=== PATIENT | male | born 1980 | race Caucasian/White ===

== ENCOUNTER 2020-10-26 10:23 | Outpatient (REF) | payer OTHER, SELFPAY ==
[2020-10-26 10:27] LABS: MANUAL DIFF FLAG NO
[2020-10-26 10:55] LABS: Basophils Absolute Auto 0.1 X10*3/uL (0.0-0.2); Basophils Percent Auto 1.6 % (0-2); Eosinophils Absolute Auto 0.7 X10*3/uL (0.0-0.4); Eosinophils Percent Auto 13.1 % (0-4); Hematocrit 46.2 % (42-52); Hemoglobin 14.9 g/dl (14.0-18.0); Imm Gran Abs Auto 0.02 X10*3/uL (0.00-0.03); Imm Gran Pct Auto 0.4 % (0.0-0.4); Lymphocytes Absolute Auto 1.5 X10*3/uL (1.2-4.9); Lymphocytes Percent Auto 29.6 % (20-40); Mean Corpuscular HGB Conc 32.3 g/dl (31.0-36.0); Mean Corpuscular Hemoglobin 29.2 pg (27.0-33.0); Mean Corpuscular Volume 90.6 fL (80-98); Mean Platelet Volume 10.2 fL (9.4-12.4); Monocytes Absolute Auto 0.4 X10*3/uL (0.1-1.2); Monocytes Percent Auto 6.9 % (2-11); Neutrophils Absolute Auto 2.5 X10*3/uL (2.0-8.3); Neutrophils Percent Auto 48.4 % (45-73); Platelet Count 259 X10*3/uL (160-400); Red Cell Distribution Width 12.2 % (11.0-16.0); White Blood Count 5.1 X10*3/uL (4.8-10.8)
[2020-10-26 11:01] LABS: Glucose Urine UA NEG (NEG); Leukocyte Esterase Urine NEG (NEG); Nitrite Urine NEG (NEG); Specific Gravity - Urine <= 1.005 (1.005-1.025); Urine Blood NEG (NEG); Urine Ketones NEG (NEG); Urine Protein NEG (NEG-TRACE)
[2020-10-26 11:03] LABS: Appearance Urine CLEAR; Color Urine YELLOW
[2020-10-26 11:21] LABS: Alanine Aminotransferase 52 U/L (0-40); Albumin Level 4.7 g/dL (3.5-5.0); Alkaline Phosphatase 53 U/L (39-117); Anion Gap 16 (12-20); Aspartate Amino Transferase 24 U/L (5-37); Bilirubin Total 1.5 mg/dL (0.0-1.0); Blood Urea Nitrogen 17 mg/dL (9-16); Calcium 9.2 mg/dL (8.4-10.2); Carbon Dioxide 28 mmol/L (22-29); Chloride 100 mmol/L (96-108); Cholesterol 241 mg/dL; Estimated Glomerular Filt Rate > 60; Glucose Fasting 99 mg/dL (60-99); HDL Cholesterol 45 mg/dL; LDL Cholesterol Calculated 170 mg/dl; Sodium 140 mmol/L (135-145); Total Protein 7.5 g/dL (6.5-8.0); Triglycerides 132 mg/dL
== END 2020-10-26 10:24 | disposition home or self-care (01) ==
LOC: HO.LNP 10:23
PROVIDERS: Visit Provider Internal Medicine
DX: Z00.00 Encounter for general adult medical examination without abnormal findings (principal); D72.820 Lymphocytosis (symptomatic); E78.00 Pure hypercholesterolemia, unspecified; R03.0 Elevated blood-pressure reading, without diagnosis of hypertension
CPT/HCPCS: 80053; 80061; 81003; 85025

== ENCOUNTER → 2020-11-17 14:48 | Outpatient (BNVA) | payer OTHER, SELFPAY | PROVIDERS: PCP Internal Medicine; Visit Provider Surgery ==

== ENCOUNTER 2020-12-03 15:32 | Outpatient (REF) | payer OTHER, SELFPAY ==
--- NOTE | ~2020-12-03 | US_ITS ---
EXAMINATION: ULTRASOUND EXTREMITY NONVASCULAR CLINICAL INFORMATION: Soft tissue mass left lateral thigh COMPARISON: None TECHNIQUE: Grayscale and color imaging of the left lateral proximal thigh using a linear transducer FINDINGS: Palpable abnormality corresponds to a 0.8 x 0.5 x 1.6 cm hypoechoic solid mass. This is 0.5 cm deep from the skin surface. This has a significant acoustic shadowing and may have some peripheral calcification. This appears avascular. Ultrasound appearance is nonspecific. US/US extremity nonvascular IMPRESSION: Palpable abnormality corresponds to a 0.8 x 0.5 x 1.6 cm solid hypoechoic shadowing mass. Ultrasound appearance is nonspecific. This would be amenable to ultrasound-guided core biopsy if clinically indicated.
== END 2020-12-03 15:33 | disposition home or self-care (01) ==
LOC: HO.US 15:32
PROVIDERS: Visit Provider Surgery
DX: R22.42 Localized swelling, mass and lump, left lower limb (principal)
CPT/HCPCS: 76882

== ENCOUNTER → 2021-01-19 10:36 | Day surgery (SDC) | payer OTHER, SELFPAY ==
--- NOTE | ~2021-01-19 | US_ITS ---
PROCEDURE: ULTRASOUND-GUIDED FINE AND CORE NEEDLE BIOPSY LEFT THIGH. CLINICAL INFORMATION: There is a calcified mass left lateral upper thigh. COMPARISON: None TECHNIQUE: Following explaining ultrasound-guided fine-needle and core biopsy procedure, benefits and risk involving left upper thigh, a written consent was obtained. Patient was placed in right decubitus view and preliminary imaging was obtained through the left upper lateral thigh. An optimal site was selected and marked on the skin. The marked site was then cleaned and draped in the usual sterile manner. 1% lidocaine was injected at puncture site. Through a small skin incision a guide needle was advanced from the marked position into the specimen and a 4-pass fine-needle aspiration biopsy was performed. Subsequently a 20-gauge biopsy gun was advanced and 2-pass core biopsy performed. Postprocedure complete hemostasis achieved at puncture site. Sterile bandage applied postprocedure. Patient tolerated procedure extremely well. FINDINGS: On preliminary ultrasound imaging there is a calcified mass in the left upper thigh. Approximately 4-pass fine-needle biopsy aspiration performed. 2-pass core biopsy of left upper thigh mass was performed. US/US guided fine needle asp IMPRESSION: Successful ultrasound-guided left upper thigh calcified mass fine-needle and core biopsy was performed without immediate complications. Pathology results are pending.
== END ==
PROVIDERS: PCP Internal Medicine; Visit Provider Surgery
DX: R22.42 Localized swelling, mass and lump, left lower limb (principal); M61.461 Other calcification of muscle, right lower leg
CPT/HCPCS: 10005; 20206; 88172; 88173; 88177; 88304; 88305

== ENCOUNTER → 2021-04-08 15:25 | Outpatient (BNVA) | payer OTHER, SELFPAY | PROVIDERS: PCP Internal Medicine; Referring Provider Internal Medicine; Visit Provider Surgery ==

== ENCOUNTER 2021-11-08 10:53 | Outpatient (REF) | payer OTHER, SELFPAY ==
[2021-11-08 10:57] LABS: MANUAL DIFF FLAG NO
[2021-11-08 11:49] LABS: Appearance Urine CLEAR; Color Urine YELLOW; Glucose Urine UA NEG (NEG); Leukocyte Esterase Urine NEG (NEG); Nitrite Urine NEG (NEG); Specific Gravity - Urine 1.025 (1.005-1.025); Urine Blood NEG (NEG); Urine Ketones NEG (NEG); Urine Protein NEG (NEG-TRACE)
[2021-11-08 11:57] LABS: Basophils Absolute Auto 0.1 X10*3/uL (0.0-0.2); Basophils Percent Auto 1.6 % (0-2); Eosinophils Absolute Auto 0.6 X10*3/uL (0.0-0.4); Eosinophils Percent Auto 11.8 % (0-4); Hematocrit 43.6 % (42.0-52.0); Hemoglobin 14.3 g/dl (14.0-18.0); Imm Gran Abs Auto 0.02 X10*3/uL (0.00-0.03); Imm Gran Pct Auto 0.4 % (0.0-0.4); Lymphocytes Absolute Auto 2.2 X10*3/uL (1.2-4.9); Lymphocytes Percent Auto 42.9 % (20-40); Mean Corpuscular HGB Conc 32.8 g/dl (31.0-36.0); Mean Corpuscular Hemoglobin 29.7 pg (27.0-33.0); Mean Corpuscular Volume 90.5 fL (80.0-98.0); Mean Platelet Volume 10.4 fL (9.4-12.4); Monocytes Absolute Auto 0.4 X10*3/uL (0.1-1.2); Monocytes Percent Auto 7.6 % (2-11); Neutrophils Absolute Auto 1.8 x10*3/uL (2.0-8.3); Neutrophils Percent Auto 35.7 % (45-73); Platelet Count 223 X10*3/uL (160-400); Red Blood Count 4.82 X10*6/uL (4.60-5.80); White Blood Count 5.1 X10*3/uL (4.8-10.8)
[2021-11-08 12:24] LABS: PSA,Total (Free>4and<10) 0.98 ng/mL (0.00-4.00)
[2021-11-08 12:36] LABS: Alanine Aminotransferase 28 U/L (0-40); Albumin Level 4.1 g/dL (3.5-5.0); Alkaline Phosphatase 51 U/L (39-117); Anion Gap 11 (12-20); Aspartate Amino Transferase 17 U/L (5-37); Bilirubin Total 1.4 mg/dL (0.0-1.0); Blood Urea Nitrogen 17 mg/dL (9-16); Calcium 9.5 mg/dL (8.4-10.2); Carbon Dioxide 28 mmol/L (22-29); Chloride 103 mmol/L (96-108); Cholesterol 178 mg/dL; Estimated Glomerular Filt Rate > 60; Glucose Fasting 97 mg/dL (60-99); HDL Cholesterol 41 mg/dL; LDL Cholesterol Calculated 106 mg/dl; Potassium 3.9 mmol/L (3.3-5.1); Sodium 138 mmol/L (135-145); Total Protein 6.7 g/dL (6.5-8.0); Triglycerides 156 mg/dL
== END 2021-11-08 10:54 | disposition home or self-care (01) ==
LOC: HO.LNP 10:53
PROVIDERS: PCP Internal Medicine; Visit Provider Internal Medicine
DX: Z00.00 Encounter for general adult medical examination without abnormal findings (principal); E78.6 Lipoprotein deficiency; D72.820 Lymphocytosis (symptomatic); Z12.5 Encounter for screening for malignant neoplasm of prostate
CPT/HCPCS: 80053; 80061; 81003; 84153; 85025

== ENCOUNTER → 2022-12-29 10:25 | Outpatient (BNVA) | payer OTHER, SELFPAY | PROVIDERS: PCP Internal Medicine; Referring Provider Internal Medicine; Visit Provider Surgery ==

== ENCOUNTER 2023-06-26 06:59 | Day surgery (SDC) | payer OTHER, SELFPAY ==
[2023-06-21 19:08] VITALS: BMI 25.5
--- NOTE | 2023-06-23 10:35 | HO.ANESPROP2 ---
Documented by User: Ashlyn Disla NP 06/23/23 10:36 HPI - Anesthesia Eval Consult details Narrative: 43yo M for Right Hernia Repair Inguinal with mesh PMFSH Active Problems Active Problems: All Active Problems (Updated 06/22/23 @ 07:46 by Leigh Lomeli RN) Mass of left thigh (Acute) Right inguinal hernia (Acute) Past Medical History Medical History Lymphocytosis Marijuana user Family History Family History Paternal Grandfather Cancer with unknown primary site Maternal Grandfather Mouth cancer Surgical History Surgical History History of mandibular surgery H/O foot surgery Social History Social History Alcohol intake: never Patient Tobacco Use Status: Never used Tobacco Use of substances other than those prescribed or required for medical reasons: Yes Substance Use Type: Marijuana Substance Use Frequency: Daily Are you DNR?: No Advance Directives: No Advance Directives Information Provided: Yes Advance Directives on File: No Recently lost weight without trying: No Nutrition Risks: No Nutritional Risk Meds Allergies Allergy/AdvReac Type Severity Reaction Status Date / Time amoxicillin [From Augmentin] AdvReac Mild Diarrhea Verified 12/29/22 10:42 Home Medications Medication Instructions Recorded Confirmed Last Taken Type No Known Home Meds 11/17/20 06/21/23 Unknown History Exam Exam Date and Time: June 23, 2023 1035 Height,Weight and Vital Signs: Height 6 ft 1 in Weight 87.543 kg Assessment and Plan Assessment Anesthesia Assessment: Chart Reviewed Documented by User: Jasmin Barth MD 06/26/23 08:04 PMFSH Past Medical History Medical History Lymphocytosis Marijuana user Family History Family History Paternal Grandfather Cancer with unknown primary site Maternal Grandfather Mouth cancer Family history of problems with anesthesia: No Surgical History Surgical History History of mandibular surgery H/O foot surgery History of Problems with Anesthesia: No Social History Social History Alcohol intake: never Patient Tobacco Use Status: Never used Tobacco Use of substances other than those prescribed or required for medical reasons: Yes Substance Use Type: Marijuana Substance Use Frequency: Daily Are you DNR?: No Advance Directives: No Advance Directives Information Provided: Yes Advance Directives on File: No Recently lost weight without trying: No Nutrition Risks: No Nutritional Risk Meds Allergies Allergy/AdvReac Type Severity Reaction Status Date / Time amoxicillin [From Augmentin] AdvReac Mild Diarrhea Verified 12/29/22 10:42 Home Medications Medication Instructions Recorded Confirmed Last Taken Type No Known Home Meds 11/17/20 06/21/23 Unknown History Exam Airway Mallampati Class: II TM Dist: >3cm Neck ROM: Full Heart: rrr Lungs: cta Assessment and Plan Assessment Anesthesia Assessment: Anesthesia Plan Discussed and Smoking Cess. Discussed Final Anesthetic Review Family History of Problems with Anesthesia: No History of Problems with Anesthesia: No NPO: Yes ASA Class: II (daily marihuana user ) Final Preanesthetic Review: No Changes in Pt Med Stat, Meds/Allgs Chart Reviewed, Consent Obtained/Reviewed and Anes Risks/Benef Reviewed Patient Risk: Intermediate Procedure Risk: Low Anesthetic Plan Anesthetic Plan: GA Disposition: Standard PACU
[2023-06-26] VITALS (8 sets, daily range): BP systolic 118–131; BP diastolic 67–85; PULSE 70–80; RESP 14–18; TEMP 36.3–36.6; O2SAT 98–100
--- NOTE | 2023-06-26 08:36 | MHC.SHP ---
Pre-Procedural Eval Section A Date of Service: 06/26/23 The patient is an INPATIENT: No Changes since office visit: Yes Patient answered all questions; No Cold of Flu in the past 2 weeks, No New Medical Problems and No Changes in Medication The History & Physical has been completed within 30 days and I have reviewed it.: No Section B Chief Complaint: Unilateral inguinal hernia, without obstruction Details of Present Illness: Continued left inguinal hernia pain, improved with truss. No new symptoms reported Relevant Family History (Specify if Yes): No Relevant Social History: None Present Medications: see Short Stay Collaborative assessment Medical History: No relevant PMH History of Previous Operations: No relevant previous surgery Allergies: Allergies Allergy/AdvReac Type Severity Reaction Status Date / Time amoxicillin [From Augmentin] AdvReac Mild Diarrhea Verified 12/29/22 10:42 Review of Systems Sugical H&P ROS: Negative: Constitution, Cardiovascular, Respiratory, Neurological, Psychiatric, Hem-Onc, Allergic/Immunologic, Gastrointestinal, Genitourinary, Musculoskeletal, Integumentary, Endocrine and Eyes/Ears/Nose/Throat Exam Surgical H&P Exam: Normal: HEENT, Normal: Heart, Normal: Lungs, Normal: Extremities, Normal: Skin and Normal: Neurological and Significant Findings: Abdomen (Reducible right inguinal hernia) Plan Diagnosis/Plan: Unchanged I have reviewed the history and physical and performed a pertinent physical examination on my patient. No changes have occurred unless specified. Time Spent With Patient Time: Total time managing care of this patient today ____ minutes.
[2023-06-26] MEDS: Lactated Ringers 1,000 ML 100 ML IVCONT (08:39)
--- NOTE | 2023-06-26 09:45 | P.OP_ITS ---
Operative Note Operative Note Date of Service: 06/26/23 Narrative: Preoperative diagnosis: Right inguinal hernia, reducible Postoperative diagnosis: Right inguinal hernia, reducible Procedure: Repair of right inguinal hernia with mesh Surgeon: Andrei Pérez MD Digital Recruiter: Katherine Harvey PA-C Anesthesia: General LMA Indications for procedure: 43-year-old male patient presenting with a palpable lump in the right groin which increases in size with lifting and straining and reduces with light pressure. Operative findings: Indirect right inguinal hernia repaired with a large PHS mesh Specimen: Lipoma of the cord right side Estimated blood loss: Less than 2 mL Complications: None Procedure details: Patient was brought to the OR placed in a supine position. After administering general anesthesia the patient's abdomen was prepped with ChloraPrep and draped in a sterile fashion. A surgical time-out was called the consent confirmed. Patient received preoperative antibiotics and Venodyne boots were in place. Local anesthesia was then infiltrated over the inguinal ligament. Incision was then made with a scalpel carried out through subcutaneous tissue, past Linda's fashion up to the external oblique aponeurosis. Additional local was infiltrated below the aponeurosis. This was then incised with the scalpel wide with the Metzenbaum scissors. The spermatic cord was then dissected free from the inguinal canal and retracted using a [place] drain. The floor of the inguinal canal was found to be intact. Fibers of the cremaster muscle were then and a large lipoma of the cord identified. This was dissected free down to the internal ring. The lipoma was ligated with a 0 Polysorb suture and excised. This was sent to pathology for further examination. No hernia sac could be identified. Attention was then to the floor of the in guinal canal. The fibers of the internal oblique aponeurosis and transversalis aponeurosis were then divided and the preperitoneal space entered. This was then widened with an open Ray-Td sponge. A large PHS mesh was then obtained. The circular underlay was then deployed in the preperitoneal space and the overlie secured to the pubic tubercle, conjoined tendon, and shelving edge of the inguinal ligament using a 0 Polysorb suture. A slit was made in the mesh in the mesh wrapped around the spermatic cord at the internal ring. This was then secured to the shelving edge using the 0 Polysorb suture. The internal ring was loose enough to allow passage of the tip of the index finger pass. Wounds were then irrigated with saline solution and suctioned dry. External oblique aponeurosis was then closed using a running 2-0 Polysorb suture. 6 mL of sent relief was then infiltrated below the aponeurosis. Linda's fascia and dermis were then reapproximated using interrupted 3-0 Polysorb sutures. Skin was closed using a running subcuticular 4-0 Polysorb suture. Steri-Strips, 2 x 2 gauze and Tegaderm were then applied. The patient tolerated the procedure well. Sponge, instrument, and needle counts reported as correct. The patient was transferred to PACU in stable condition.
== END 2023-06-26 12:37 | disposition home or self-care (01) ==
PROVIDERS: PCP Internal Medicine; Visit Provider Surgery
PROC: (CPT 49505; principal; 2023-06-26 08:40)
DX: K40.90 Unilateral inguinal hernia, without obstruction or gangrene, not specified as recurrent (principal); D17.6 Benign lipomatous neoplasm of spermatic cord; D72.820 Lymphocytosis (symptomatic); Z88.1 Allergy status to other antibiotic agents; F12.90 Cannabis use, unspecified, uncomplicated; Z86.16 Personal history of COVID-19
CPT/HCPCS: 49505; 88304; C1781; C9088; J0665; J0690; J1100; J1885; J2405; J3010

== ENCOUNTER → 2023-06-26 06:59 | Outpatient (BNV) | payer OTHER, SELFPAY | PROVIDERS: PCP Internal Medicine; Visit Provider Surgery | DX: K40.90 Unilateral inguinal hernia, without obstruction or gangrene, not specified as recurrent (principal) | CPT/HCPCS: 49505 ==

== ENCOUNTER 2023-06-30 14:57 | Outpatient (AMB) | payer OTHER, SELFPAY ==
--- NOTE | 2023-06-30 15:06 | A.OFFVIS_ITS ---
Intake Vital Signs 06/30/23 15:20 Height 6 ft 1 in Weight 191 lb 12.835 oz BMI 25.3 BP 147/93 H Blood Pressure Location Rt brachial Position Sitting Pulse 87 Pulse Source Pulse Oximeter Temp 97.6 F Temp Source Tympanic Pulse Oximetry (%) 100 Oxygen Delivery Method Room Air Intake Visit Reasons: post-op nausea, hernia repair *JJM Pt* Intake Note: Pt c/o: dizziness, bloating with anything to eat, nausea and sleeping all day today. He states he stopped pain medication x 1 day Refresh Technician Required: No Business Reporting Developer: Business Reporting Developer offered & declined Allergies amoxicillin [From Augmentin] Adverse Reaction (Mild, Verified 06/30/23 15:22) Diarrhea Medication List - Last Reconciled 06/30/23 by Jhon Rodriguez MD, ORI, SHAKIRS acetaminophen (Tylenol) 325 mg PO QID PRN ondansetron HCl 4 mg PO Q6-8H PRN ondansetron HCl 4 mg PO Q6H PRN sennosides (Natural Senna Laxative) 8.6 mg PO DAILY HPI HPI Comments History of Present Illness Details The patient is a 43-year-old gentleman who underwent an uneventful open right inguinal hernia repair with mesh by Dr. Pérez on 06/26/2023. The patient contacted the office noting dizziness, lightheadedness, that was worsening after removing his anti nausea patch. The patient is been having significant constipation and also notes that he is a heavy marijuana user and he has not been using marijuana since surgery. He had been taking the oxycodone that was prescribed fairly regularly and due to constipation and taken multiple laxatives. Given the degree of symptoms described, I asked him to come to the office for an evaluation. He is accompanied by his and notes that he is a little better after having a bowel movement here, but is still having issues regarding dizziness. He denies chest pain, difficulty breathing, shortness of breath. He does noted tendency towards motion sickness. He is describing also back pain and right flank pain. [facility] Medical History (Updated 06/30/23 @ 15:19 by Jhon Rodriguez MD, FACS, SHAKIRS) Lymphocytosis Marijuana user Surgical History (Updated 06/30/23 @ 15:23 by Praveena Daley CMA) Hx of inguinal hernia repair History of mandibular surgery H/O foot surgery Family History Paternal Grandfather Cancer with unknown primary site Maternal Grandfather Mouth cancer Social History Alcohol intake: never Patient Tobacco Use Status: Never used Tobacco Substance Use Type: Marijuana Review of Systems Const All systems reviewed & are unremarkable except as noted in HPI and below Physical Exam Vital Signs: Last Vital Signs Temp 97.6 F 06/30/23 15:20 Pulse 87 06/30/23 15:20 BP 147/93 H 06/30/23 15:20 Pulse Ox 100 06/30/23 15:20 Oxygen Delivery Method Room Air 06/30/23 15:20 BMI result Body Mass Index 25.3 On exam he is nontoxic He is anicteric He is having no respiratory difficulty Patient is examined standing in his abdomen is soft with no tenderness, a resolving ecchymosis around his incision is noted but there is no erythema, significant tenderness, significant hematoma, or unexpected finding on physical exam. Results Reviewed Results Reviewed: I ordered a stat CBC which showed normal hemoglobin and white blood cell count Chemistries essentially normal, minor anomalies are present but the patient is not dehydrated having a normal BUN and creatinine. Assessment & Plan Assessment & Plan (1) Right inguinal hernia: Code(s): K40.90 - Unilateral inguinal hernia, without obstruction or gangrene, not specified as recurrent Plan I will contact the patient by phone assuming that his chemistries are fine and he is not dehydrated. Script for Zofran was sent to his pharmacy as requested. I suspect the patient is dealing with constipation that is causing nausea and the patient was reassured that this should pass. Patient also notes heavy daily marijuana use and, anecdotally, symptoms of nausea from not using marijuana sometimes occur in patients postoperatively or during illness. Patient will follow-up with Dr. Pérez next and will contact me by phone on the weekend if he is clinically worsening or has questions. I called the patient on his cell phone at [phone], but there was no answer. Message was left reassuring him that there were no significant anomalies or problems was left and a reminder that he can reach me through the answering service if he has questions. Orders: Orders Complete Blood Count Auto Diff Today K40.90 - Unilateral inguinal hernia, without obstruction or gangrene, not specified as recurrent, R11.0 - Nausea Comprehensive Met. Panel Today K40.90 - Unilateral inguinal hernia, without obstruction or gangrene, not specified as recurrent, R11.0 - Nausea Medications: New ondansetron HCl 4 mg PO Q6-8H PRN 20 tabs 0RF nausea and vomiting ondansetron HCl 4 mg PO Q6H PRN 20 tabs 0RF nausea and vomiting Coding Level of Care Code Global (28593) Diagnoses Right inguinal hernia K40.90
[2023-06-30 15:20] VITALS: BP 147/93; PULSE 87; TEMP 36.4; O2SAT 100; BMI 25.3
== END 2023-06-30 16:47 | disposition home or self-care (01) ==
PROVIDERS: PCP Internal Medicine; Visit Provider Surgery
DX: K40.90 Unilateral inguinal hernia, without obstruction or gangrene, not specified as recurrent (principal)
CPT/HCPCS: 99024

== ENCOUNTER 2023-06-30 14:57 | Outpatient (REF) | payer OTHER, SELFPAY ==
[2023-06-30 15:54] LABS: MANUAL DIFF FLAG NO
[2023-06-30 16:19] LABS: Basophils Absolute Auto 0.1 X10*3/uL (0.0-0.2); Basophils Percent Auto 0.9 % (0-2); Eosinophils Absolute Auto 0.5 X10*3/uL (0.0-0.4); Eosinophils Percent Auto 8.8 % (0-4); Hematocrit 47.2 % (42.0-52.0); Hemoglobin 15.9 g/dl (14.0-18.0); Imm Gran Abs Auto 0.02 X10*3/uL (0.00-0.03); Imm Gran Pct Auto 0.4 % (0.0-0.4); Lymphocytes Absolute Auto 1.4 X10*3/uL (1.2-4.9); Lymphocytes Percent Auto 26.1 % (20-40); Mean Corpuscular HGB Conc 33.7 g/dl (31.0-36.0); Mean Corpuscular Hemoglobin 29.6 pg (27.0-33.0); Mean Corpuscular Volume 87.7 fL (80.0-98.0); Mean Platelet Volume 10.1 fL (9.4-12.4); Monocytes Absolute Auto 0.3 X10*3/uL (0.1-1.2); Monocytes Percent Auto 6.2 % (2-11); Neutrophils Absolute Auto 3.2 x10*3/uL (2.0-8.3); Neutrophils Percent Auto 57.6 % (45-73); Platelet Count 262 X10*3/uL (160-400); Red Blood Count 5.38 X10*6/uL (4.60-5.80); White Blood Count 5.5 X10*3/uL (4.8-10.8)
[2023-06-30 16:42] LABS: Alanine Aminotransferase 21 U/L (0-40); Albumin Level 4.5 g/dL (3.5-5.0); Alkaline Phosphatase 62 U/L (39-117); Anion Gap 12 (12-20); Aspartate Amino Transferase 19 U/L (5-37); Bilirubin Total 1.5 mg/dL (0.0-1.0); Blood Urea Nitrogen 9 mg/dL (9-16); Calcium 10.3 mg/dL (8.4-10.2); Carbon Dioxide 29 mmol/L (22-29); Chloride 104 mmol/L (96-108); Estimated Glomerular Filt Rate > 60; Glucose Random 94 mg/dL (60-115); Potassium 4.5 mmol/L (3.3-5.1); Sodium 140 mmol/L (135-145); Total Protein 8.2 g/dL (6.5-8.0)
== END 2023-06-30 14:58 | disposition home or self-care (01) ==
LOC: HO.LAB 14:57
PROVIDERS: PCP Internal Medicine; Visit Provider Surgery
DX: K40.90 Unilateral inguinal hernia, without obstruction or gangrene, not specified as recurrent (principal); R11.0 Nausea
CPT/HCPCS: 36415; 80053; 85025

== ENCOUNTER 2023-07-06 09:27 | Outpatient (AMB) | payer OTHER, SELFPAY ==
--- NOTE | 2023-07-06 09:37 | A.OFFVIS_ITS ---
Intake Vital Signs 07/06/23 09:48 Height 6 ft 1 in Weight 196 lb BMI 25.9 BP 141/86 H Blood Pressure Location Rt brachial Position Sitting Pulse 79 Intake Visit Reasons: S/P RIH repair w/mesh Intake Note: Patient is seen in office for post op assessment post right inguinal hernia repair. Reports incision healing well. No longer taking rx pain meds. Taking tylenol/ ibuprofen as needed. surgery: 06/26/23 Assistant Associate Full Professor Required: No Accompanied by: Self / Same As Patient Allergies amoxicillin [From Augmentin] Adverse Reaction (Mild, Verified 07/06/23 09:47) Diarrhea Medication List - Last Reconciled 07/06/23 by Andrei Pérez MD acetaminophen (Tylenol) 325 mg PO QID PRN ondansetron HCl 4 mg PO Q6H PRN sennosides (Natural Senna Laxative) 8.6 mg PO DAILY HPI HPI Comments History of Present Illness Details 43-year-old male returning 1 week follow ing repair of a right inguinal hernia. He reports soreness in the incision but is improving day by day. He denies nausea, vomiting, fevers chills. PFSH Medical History Lymphocytosis Marijuana user Surgical History Hx of inguinal hernia repair History of mandibular surgery H/O foot surgery Family History Paternal Grandfather Cancer with unknown primary site Maternal Grandfather Mouth cancer Social History Alcohol intake: never Patient Tobacco Use Status: Never used Tobacco Substance Use Type: Marijuana Physical Exam Vital Signs: Last Vital Signs Pulse 79 07/06/23 09:48 BP 141/86 H 07/06/23 09:48 BMI result Body Mass Index 25.9 Const General: comfortable Nutritional Appearance: well nourished Orientation/consciousness: patient oriented x3 Limitations: no limitations Resp Effort & Inspection: normal respiratory effort, no audible wheezes, no cough and no respiratory distress GI Other: Incision in the right groin is clean, dry, and intact without redness or discharge. No hernia noted with Valsalva maneuvers. Skin Other: Warm, dry, no rash Neuro General: patient oriented x3 Extrem Other: No edema Assessment & Plan Assessment & Plan (1) Right inguinal hernia: Code(s): K40.90 - Unilateral inguinal hernia, without obstruction or gangrene, not specified as recurrent Plan 43-year-old male status post repair of a right inguinal hernia with mesh. He tolerated the procedure well the wounds are healing nicely. He should continue to avoid lifting greater than 10 lb and follow-up in approximately 1 month for wound examination. Coding Level of Care Code Global (88130) Diagnoses Right inguinal hernia K40.90
[2023-07-06 09:48] VITALS: BP 141/86; PULSE 79; BMI 25.9
== END 2023-07-06 09:58 | disposition home or self-care (01) ==
PROVIDERS: PCP Internal Medicine; Visit Provider Surgery
DX: K40.90 Unilateral inguinal hernia, without obstruction or gangrene, not specified as recurrent (principal)
CPT/HCPCS: 99024

== ENCOUNTER → 2023-07-06 09:27 | Outpatient (BNVA) | payer OTHER, SELFPAY | PROVIDERS: PCP Internal Medicine; Visit Provider Surgery ==

== ENCOUNTER 2023-07-27 10:41 | Outpatient (AMB) | payer OTHER, SELFPAY ==
--- NOTE | 2023-07-27 10:45 | MHC.OFFVIS ---
Intake Vital Signs 07/27/23 10:53 Height 6 ft 1 in Weight 202 lb BMI 26.6 BP 142/76 H Blood Pressure Location Lt brachial Position Sitting Pulse 63 Intake Visit Reasons: S/P RIH repair w/mesh Intake Note: Patient is seen in office for one month follow up visit, post right inguinal hernia repair. Pt c/o: at times sore, healing as expected Application Consultant Required: No Accompanied by: Self / Same As Patient Allergies amoxicillin [From Augmentin] Adverse Reaction (Mild, Verified 07/27/23 10:54) Diarrhea HPI HPI Comments History of Present Illness Details Patient returns 1 month following repair of a right inguinal hernia. He still has some soreness in the incision and is concerned about returning to full duty work. He denies any nausea, vomiting, fever or chills. [facility] Medical History Lymphocytosis Marijuana user Surgical History Hx of inguinal hernia repair History of mandibular surgery H/O foot surgery Family History Paternal Grandfather Cancer with unknown primary site Maternal Grandfather Mouth cancer Social History Alcohol intake: never Comment: counts correct Patient Tobacco Use Status: Never used Tobacco Substance Use Type: Marijuana Physical Exam Vital Signs: Last Vital Signs Pulse 63 07/27/23 10:53 BP 142/76 H 07/27/23 10:53 BMI result Body Mass Index 26.6 Const General: comfortable Nutritional Appearance: well nourished Orientation/consciousness: patient oriented x3 Limitations: no limitations Resp Effort & Inspection: normal respiratory effort, no audible wheezes, no cough and no respiratory distress GI Other: Incision in the right groin is clean, dry, and intact without redness or discharge. No hernia noted with Valsalva maneuvers. minimal tenderness to palpation. Skin Other: Warm, dry, no rash Neuro General: patient oriented x3 Extrem Other: No edema Assessment & Plan Assessment & Plan (1) Right inguinal hernia: Code(s): K40.90 - Unilateral inguinal hernia, without obstruction or gangrene, not specified as recurrent Plan Patient tolerated the procedure well and his wounds are healing nicely. 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 I recommended he stay out of work for another 4 weeks before returning to full duty. He should return as needed. Coding Level of Care Code Global (90896) Diagnoses Right inguinal hernia K40.90
[2023-07-27 10:53] VITALS: BP 142/76; PULSE 63; BMI 26.6
== END 2023-07-27 11:01 | disposition home or self-care (01) ==
PROVIDERS: PCP Internal Medicine; Visit Provider Surgery
DX: K40.90 Unilateral inguinal hernia, without obstruction or gangrene, not specified as recurrent (principal)
CPT/HCPCS: 99024

== ENCOUNTER → 2023-07-27 10:41 | Outpatient (BNVA) | payer OTHER, SELFPAY | PROVIDERS: PCP Internal Medicine; Visit Provider Surgery ==

== ENCOUNTER 2023-07-28 13:30 | Outpatient (REF) | payer OTHER, SELFPAY ==
--- NOTE | ~2023-07-28 | US_ITS ---
EXAMINATION: US SCROTUM CLINICAL INFORMATION: Lump on scrotum. COMPARISON: None available. TECHNIQUE: A sonogram of the scrotum was performed assessing flynn-scale appearance and color Doppler flow. Spectral Doppler analysis of the arterial and venous flow were performed in the testes bilaterally. Radiologist was not in attendance. Images were later provided for interpretation. FINDINGS: RIGHT: Right testicle measures 5.0 x 2.5 x 3.2 cm, volume 20.9 mL. No focal testicular parenchymal lesions are visualized. Spectral Doppler analysis of the arterial and venous flow is normal in the right testis. 1.2 x 1.2 x 1.2 cm cyst in the region of the right epididymal head. No right varicocele is seen. Small right hydrocele. Right epididymal Doppler flow is normal. LEFT: Left testicle measures 4.8 x 2.4 x 3.1 cm, volume 18.7 mL. No focal testicular parenchymal lesions are visualized. Spectral Doppler analysis of the arterial and venous flow is normal in the left testis. A 1.4 x 0.6 x 1.8 cm complex cyst with multiple septations is located on the lower aspect of the left scrotum, possibly within the left epididymal tail, but difficult to confirm location. No left varicocele is seen. Small left hydrocele. Left epididymal Doppler flow is normal. US/US scrotum IMPRESSION: 1. A 1.4 cm complex multiseptated cyst along the lower aspect of the left scrotum, possibly within the left epididymal tail, but difficult to confirm location. 2. A 1.2 cm cyst in the region of the right epididymal head. 3. Small bilateral hydroceles. Urology consultation recommended to determine further management.
== END 2023-07-28 13:31 | disposition home or self-care (01) ==
LOC: HO.HMGCX 13:30
PROVIDERS: PCP Internal Medicine; Visit Provider Internal Medicine
DX: N50.89 Other specified disorders of the male genital organs (principal)
CPT/HCPCS: 76870

== ENCOUNTER 2023-09-15 11:21 | Outpatient (REF) | payer OTHER, SELFPAY ==
[2023-09-15 11:26] LABS: MANUAL DIFF FLAG NO
[2023-09-15 11:46] LABS: Appearance Urine Clear; Color Urine Yellow; Glucose Urine UA Negative (Negative); Leukocyte Esterase Urine Negative (Negative); Nitrite Urine Negative (Negative); Specific Gravity - Urine >= 1.030 (1.005-1.025); Urine Blood Negative (Negative); Urine Ketones Negative (Negative); Urine Protein Negative (Neg-Trace)
[2023-09-15 11:47] LABS: Basophils Absolute Auto 0.1 X10*3/uL (0.0-0.2); Basophils Percent Auto 2.1 % (0-2); Eosinophils Absolute Auto 0.8 X10*3/uL (0.0-0.4); Hematocrit 43.6 % (42.0-52.0); Hemoglobin 14.4 g/dl (14.0-18.0); Imm Gran Abs Auto 0.03 X10*3/uL (0.00-0.03); Imm Gran Pct Auto 0.6 % (0.0-0.4); Lymphocytes Absolute Auto 1.5 X10*3/uL (1.2-4.9); Lymphocytes Percent Auto 31.6 % (20-40); Mean Corpuscular Hemoglobin 30.3 pg (27.0-33.0); Mean Corpuscular Volume 91.6 fL (80.0-98.0); Mean Platelet Volume 10.9 fL (9.4-12.4); Monocytes Absolute Auto 0.4 X10*3/uL (0.1-1.2); Monocytes Percent Auto 7.7 % (2-11); Platelet Count 248 X10*3/uL (160-400); Red Blood Count 4.76 X10*6/uL (4.60-5.80); Red Cell Distribution Width 12.4 % (11.0-16.0); White Blood Count 4.7 X10*3/uL (4.8-10.8)
[2023-09-15 11:52] LABS: Bacteria Urine None Seen (None Seen); Hyaline Casts Urine 0-2 /LPF (0-2); RBC Urine 0-2 /HPF (0-2); Squamous Epithelial Cell Urine 0-2 /HPF (0-2); WBC Urine 0-5 /HPF (0-5)
[2023-09-15 11:53] LABS: Alanine Aminotransferase 30 U/L (0-40); Albumin Level 4.3 g/dL (3.5-5.0); Alkaline Phosphatase 46 U/L (39-117); Anion Gap 17 (12-20); Aspartate Amino Transferase 23 U/L (5-37); Bilirubin Total 1.2 mg/dL (0.0-1.0); Blood Urea Nitrogen 20 mg/dL (9-16); Calcium 9.5 mg/dL (8.4-10.2); Carbon Dioxide 25 mmol/L (22-29); Chloride 104 mmol/L (96-108); Cholesterol 180 mg/dL (<200); Estimated Glomerular Filt Rate > 60; Glucose Fasting 90 mg/dL (60-99); HDL Cholesterol 46 mg/dL (>40); LDL Cholesterol Calculated 116 mg/dL (<100); Potassium 4.1 mmol/L (3.3-5.1); Sodium 142 mmol/L (135-145); Total Protein 7.2 g/dL (6.5-8.0); Triglycerides 91 mg/dL (<150)
[2023-09-15 12:13] LABS: PSA,Total (Free>4and<10) 0.99 ng/mL (0.00-4.00)
== END 2023-09-15 11:22 | disposition home or self-care (01) ==
LOC: HO.LNP 11:21
PROVIDERS: Visit Provider Internal Medicine
DX: Z00.00 Encounter for general adult medical examination without abnormal findings (principal); Z12.5 Encounter for screening for malignant neoplasm of prostate; E78.00 Pure hypercholesterolemia, unspecified; D72.820 Lymphocytosis (symptomatic)
CPT/HCPCS: 80053; 80061; 81001; 84153; 85025

== ENCOUNTER 2023-09-20 12:45 | Outpatient (AMB) | payer OTHER, SELFPAY ==
--- NOTE | 2023-09-20 13:19 | MHC.OFFVIS ---
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 The patient had a scrotal ultrasound in July I have reviewed the results. The patient denies pain currently. 07/28/23-- 1.4 cm complex multiseptated cyst along the lower aspect of the left scrotum, possibly within the left epididymal tail, but difficult to confirm location. A 1.2 cm cyst in the region of the right epididymal head. Small bilateral hydroceles. Examination: No significant scrotal swelling. No testicular tenderness. Plan repeat ultrasound in 3 months [facility] Medical History Lymphocytosis Marijuana user Surgical History Hx of inguinal hernia repair History of mandibular surgery H/O foot surgery Family History Paternal Grandfather Cancer with unknown primary site Maternal Grandfather Mouth cancer Social History Alcohol intake: never Comment: counts correct Patient Tobacco Use Status: Never used Tobacco Substance Use Type: Marijuana Review of Systems Const All systems reviewed & are unremarkable except as noted in HPI and below Reports no additional complaints Eyes Reports no additional complaints ENT Reports no additional complaints Card Denies dyspnea Resp Denies cough and Denies dyspnea GI Reports no additional complaints Musc Reports no additional complaints Skin/Breast Denies rash and Denies unusual bruising Neuro Reports no additional complaints Psych Reports no additional complaints Endo Reports no additional complaints Ted/Lymph Reports no additional complaints Aller/Immun Reports no additional complaints Physical Exam Const General: healthy appearing, no acute distress and well developed Orientation/consciousness: patient oriented x3 HEENT Head: Yes normocephalic and Yes atraumatic Eyes Conjunctivae: conjunctivae normal Neck Neck: Yes normal visual inspection Chest Chest palpation & inspection: normal inspection of the chest Resp Effort & Inspection: normal respiratory effort Cardio Rate: regular rate GI Inspection: Yes normal to inspection Palpation (GI): Soft to palpation Other: Testicles nontender, scrotum no erythema noted Penis: normal penis Skin General skin exam: no rashes or lesions noted Neuro General: patient oriented x3 Extrem General: No pedal edema Psych Appearance: grossly normal Affect: normal affect Results AMB Urinalysis, Automated UA Leukoctes 0 Jose Armando/uL Last Edit by Cassie Carpio [facility] on 09/20/23 13:27 UA Nitrite Negative Last Edit by Cassie Carpio [facility] on 09/20/23 13:27 UA Urobilinogen 0.2 mg/dL Last Edit by Cassie Carpio [facility] on 09/20/23 13:27 UA Protein 0 mg/dL Last Edit by Cassie Carpio [facility] on 09/20/23 13:27 UA pH 6.0 Last Edit by Cassie Carpio [facility] on 09/20/23 13:27 UA Blood 0 Thee/uL Last Edit by Cassie Carpio [facility] on 09/20/23 13:27 UA Specific [place] 1.030 Last Edit by Cassie Carpio [facility] on 09/20/23 13:27 UA Ketone Negative Last Edit by Cassie Carpio [facility] on 09/20/23 13:27 UA Bilirubin 0 mg/dL Last Edit by Cassie Carpio [facility] on 09/20/23 13:27 UA Glucose 0 mg/dL Last Edit by Cassie Carpioryan Carpio [facility] on 09/20/23 13:27 Results Reviewed Results Reviewed: Laboratory Last Values Urine pH (Auto) 6.0 09/20/23 13:24 Specific [place] (Auto) 1.030 09/20/23 13:24 Urine Protein (Auto) 0 mg/dL 09/20/23 13:24 Glucose (UA)(Auto) 0 mg/dL 09/20/23 13:24 Urine Ketones (Auto) Negative 09/20/23 13:24 Urine Blood (Auto) 0 Thee/uL 09/20/23 13:24 Urine Nitrite (Auto) Negative 09/20/23 13:24 Urine Bilirubin (Auto) 0 mg/dL 09/20/23 13:24 Urine Urobilinogen (Auto) 0.2 mg/dL 09/20/23 13:24 Leukocyte Esterase (Auto) 0 Jose Armando/uL 09/20/23 13:24 Date of Service: 07/28/23 EXAMINATION: US SCROTUM CLINICAL INFORMATION: Lump on scrotum. COMPARISON: None available. TECHNIQUE: A sonogram of the scrotum was performed assessing flynn-scale appearance and color Doppler flow. Spectral Doppler analysis of the arterial and venous flow were performed in the testes bilaterally. Radiologist was not in attendance. Images were later provided for interpretation. FINDINGS: RIGHT: Right testicle measures 5.0 x 2.5 x 3.2 cm, volume 20.9 mL. No focal testicular parenchymal lesions are visualized. Spectral Doppler analysis of the arterial and venous flow is normal in the right testis. 1.2 x 1.2 x 1.2 cm cyst in the region of the right epididymal head. No right varicocele is seen. Small right hydrocele. Right epididymal Doppler flow is normal. LEFT: Left testicle measures 4.8 x 2.4 x 3.1 cm, volume 18.7 mL. No focal testicular parenchymal lesions are visualized. Spectral Doppler analysis of the arterial and venous flow is normal in the left testis. A 1.4 x 0.6 x 1.8 cm complex cyst with multiple septations is located on the lower aspect of the left scrotum, possibly within the left epididymal tail, but difficult to confirm location. No left varicocele is seen. Small left hydrocele. Left epididymal Doppler flow is normal. IMPRESSION: 1. A 1.4 cm complex multiseptated cyst along the lower aspect of the left scrotum, possibly within the left epididymal tail, but difficult to confirm location. 2. A 1.2 cm cyst in the region of the right epididymal head. 3. Small bilateral hydroceles. Assessment & Plan Assessment & Plan (1) Scrotal cyst: Code(s): L72.9 - Follicular cyst of the skin and subcutaneous tissue, unspecified (2) Epididymal cyst: Code(s): N50.3 - Cyst of epididymis Plan Repeat scrotal ultrasound Orders: Orders AMB Urinalysis Automated 09/20/23 R33.9 - Retention of urine, unspecified Patient Instructions: The patient had an opportunity to ask questions regarding treatment plan. All questions were answered. Imaging, Laboratory studies and physical exam results were discussed and reviewed in detail. No major barriers to understanding were identified. The patient expressed understanding and agreement with the above treatment plan. The patient is aware they should contact our office by phone for worsening of their current condition or the appearance of new symptoms. Compliance is encouraged with any medications and followup testing that is ordered. It is a privilege to be allowed the opportunity to participate in the urologic care of your patient. If you have any questions or concerns regarding treatment for the above conditions please do not hesitate to contact me. The office telephone contact is [phone]. This note is constructed in part using voice recognition software. While every effort has been made to ensure accuracy acquisition advisor errors may have been included. Yours sincerely, Eloisa Mccall MD Coding Level of Care Code New Pt Level 3 (85826) Diagnoses Scrotal cyst L72.9 Epididymal cyst N50.3
== END 2023-09-20 13:43 | disposition home or self-care (01) ==
PROVIDERS: PCP Internal Medicine; Visit Provider Urology
DX: L72.9 Follicular cyst of the skin and subcutaneous tissue, unspecified (principal); N50.3 Cyst of epididymis
CPT/HCPCS: 99203

== ENCOUNTER → 2023-09-20 12:45 | Outpatient (BNVA) | payer OTHER, SELFPAY | PROVIDERS: PCP Internal Medicine; Visit Provider Urology | DX: L72.9 Follicular cyst of the skin and subcutaneous tissue, unspecified (principal); N50.3 Cyst of epididymis; N43.3 Hydrocele, unspecified | CPT/HCPCS: 81003 ==

== ENCOUNTER 2023-11-20 15:25 | Outpatient (REF) | payer OTHER, SELFPAY ==
--- NOTE | ~2023-11-20 | US_ITS ---
EXAMINATION: US SCROTUM CLINICAL INFORMATION: Cyst of epididymis. COMPARISON: Scrotal ultrasound 07/28/2023. TECHNIQUE: A sonogram of the scrotum was performed assessing flynn-scale appearance and color Doppler flow. Spectral Doppler analysis of the arterial and venous flow were performed in the testes bilaterally. Radiologist was not in attendance. Images were later provided for interpretation. FINDINGS: RIGHT: Right testicle measures 4.9 x 2.5 x 3.5 cm, volume 22.1 mL. No focal testicular parenchymal lesions are visualized. Spectral Doppler analysis of the arterial and venous flow is normal in the right testis. Right epididymal Doppler flow is normal. A 1.2 x 0.9 x 1.1 cm cyst in the region of the epididymal head redemonstrated. Right varicocele. Moderate right hydrocele appears complex with low-level internal echoes characteristic of debris. LEFT: Left testicle measures 4.7 x 2.4 x 3.2 cm, volume 18.4 mL. No focal testicular parenchymal lesions are visualized. Spectral Doppler analysis of the arterial and venous flow is normal in the left testis. Left epididymal Doppler flow is normal. Left varicocele. Redemonstration of a moderate left hydrocele with complex internal echoes. Along the inferior aspect of the left testicle there is redemonstration of a complex collection with multiple septations and complex internal echoes which may represent a component of the hydrocele or may correlate with the previously identified 1.4 x 0.6 x 1.8 cm complex cystic collection noted along the lower aspect of the left scrotum. The relationship of these collections are difficult to assess. US/US scrotum IMPRESSION: 1. Moderate bilateral complex hydroceles. Redemonstration of a complex collection with low level internal echoes and septations along the inferior aspect of the left scrotum which is previously felt to represent a complex cystic collection, but may in fact be related to the complex left hydrocele. Relationship of these collections is difficult to assess. 2. A 1.2 cm cyst in the region of the right epididymal head. 3. Bilateral varicoceles. Urology consultation recommended to determine further management.
== END 2023-11-20 15:26 | disposition home or self-care (01) ==
LOC: HO.HMGCX 15:25
PROVIDERS: PCP Internal Medicine; Visit Provider Urology
DX: N50.3 Cyst of epididymis (principal); L72.9 Follicular cyst of the skin and subcutaneous tissue, unspecified
CPT/HCPCS: 76870

== ENCOUNTER 2023-11-29 15:22 | Outpatient (AMB) | payer OTHER, SELFPAY ==
--- NOTE | 2023-11-29 15:34 | A.OFFVIS_ITS ---
Intake Visit Reasons: follow up/US Intake Note: Patient is Present for Follow Up Ultrasound Urology Medication: none Antibiotic Allergies: Amoxicillin Blood Thinners:none Allergies amoxicillin [From Augmentin] Adverse Reaction (Mild, Verified 09/20/23 13:23) Diarrhea HPI Comments Details: Cesilia is a 43-year-old male who is here for FU scrotal US-11/20/23. Findings are stable multiseptated cyst along scrotum. On exam - testes non tender, scrotum without swelling or tenderness. Review of chart: 07/28/23-- 1.4 cm complex multiseptated cyst along the lower aspect of the left scrotum, possibly within the left epididymal tail, but difficult to confirm location. A 1.2 cm cyst in the region of the right epididymal head. Small bilateral hydroceles. Plan FU prn PFSH Medical History Lymphocytosis Marijuana user Surgical History Hx of inguinal hernia repair History of mandibular surgery H/O foot surgery Family History Paternal Grandfather Cancer with unknown primary site Maternal Grandfather Mouth cancer Social History Alcohol intake: never Comment: counts correct Patient Tobacco Use Status: Never used Tobacco Substance Use Type: Marijuana Review of Systems Const All systems reviewed & are unremarkable except as noted in HPI and below Reports no additional complaints Eyes Reports no additional complaints ENT Reports no additional complaints Card Reports no additional complaints Resp Reports no additional complaints GI Reports no additional complaints Reports as per HPI Musc Reports no additional complaints Skin/Breast Reports system reviewed and no additional complaints, except as documented Neuro Reports no additional complaints Psych Reports no additional complaints Endo Reports no additional complaints Ted/Lymph Reports no additional complaints Aller/Immun Reports no additional complaints Physical Exam Const General: healthy appearing, no acute distress and well developed Orientation/consciousness: patient oriented x3 HEENT Head: Yes normocephalic and Yes atraumatic Eyes Conjunctivae: conjunctivae normal Neck Neck: Yes normal visual inspection Chest Chest palpation & inspection: normal inspection of the chest Resp Effort & Inspection: normal respiratory effort Other: On exam - testes non tender, scrotum without swelling or tenderness. Neuro General: patient oriented x3 Extrem General: No pedal edema Psych Appearance: grossly normal Affect: normal affect Results AMB Urinalysis, Automated UA Leukoctes 0 Jose Armando/uL Last Edit by Praveena Granado [facility] on 11/29/23 15:43 UA Nitrite Negative Last Edit by Praveena Granado [facility] on 11/29/23 15:43 UA Urobilinogen 0.2 mg/dL Last Edit by Praveena Granado [facility] on 11/29/23 15:4 3 UA Protein 0 mg/dL Last Edit by Praveena Granado A on 11/29/23 15:43 UA pH 7.5 Last Edit by Praveena Granado [facility] on 11/29/23 15:43 UA Blood 0 Thee/uL Last Edit by Praveena Granado [facility] on 11/29/23 15:43 UA Specific [place] 1.015 Last Edit by Praveena Granado [facility] on 11/29/23 15: 43 UA Ketone Negative Last Edit by Praveena Granado [facility] on 11/29/23 15:43 UA Bilirubin 0 mg/dL Last Edit by Praveena Granado [facility] on 11/29/23 15:43 UA Glucose 0 mg/dL Last Edit by Praveena Granado [facility] on 11/29/23 15:43 Results Reviewed Results Reviewed: Laboratory Last Values Urine pH (Auto) 7.5 11/29/23 15:42 Specific [place] (Auto) 1.015 11/29/23 15:42 Urine Protein (Auto) 0 mg/dL 11/29/23 15:42 Glucose (UA)(Auto) 0 mg/dL 11/29/23 15:42 Urine Ketones (Auto) Negative 11/29/23 15:42 Urine Blood (Auto) 0 Thee/uL 11/29/23 15:42 Urine Nitrite (Auto) Negative 11/29/23 15:42 Urine Bilirubin (Auto) 0 mg/dL 11/29/23 15:42 Urine Urobilinogen (Auto) 0.2 mg/dL 11/29/23 15:42 Leukocyte Esterase (Auto) 0 Jose Armando/uL 11/29/23 15:42 Date of Service: 11/20/23 EXAMINATION: US SCROTUM CLINICAL INFORMATION: Cyst of epididymis. COMPARISON: Scrotal ultrasound 07/28/2023. TECHNIQUE: A sonogram of the scrotum was performed assessing flynn-scale appearance and color Doppler flow. Spectral Doppler analysis of the arterial and venous flow were performed in the testes bilaterally. Radiologist was not in attendance. Images were later provided for interpretation. FINDINGS: RIGHT: Right testicle measures 4.9 x 2.5 x 3.5 cm, volume 22.1 mL. No focal testicular parenchymal lesions are visualized. Spectral Doppler analysis of the arterial and venous flow is normal in the right testis. Right epididymal Doppler flow is normal. A 1.2 x 0.9 x 1.1 cm cyst in the region of the epididymal head redemonstrated. Right varicocele. Moderate right hydrocele appears complex with low-level internal echoes characteristic of debris. LEFT: Left testicle measures 4.7 x 2.4 x 3.2 cm, volume 18.4 mL. No focal testicular parenchymal lesions are visualized. Spectral Doppler analysis of the arterial and venous flow is normal in the left testis. Left epididymal Doppler flow is normal. Left varicocele. Redemonstration of a moderate left hydrocele with complex internal echoes. Along the inferior aspect of the left testicle there is redemonstration of a complex collection with multiple septations and complex internal echoes which may represent a component of the hydrocele or may correlate with the previously identified 1.4 x 0.6 x 1.8 cm complex cystic collection noted along the lower aspect of the left scrotum. The relationship of these collections are difficult to assess. IMPRESSION: 1. Moderate bilateral complex hydroceles. Redemonstration of a complex collection with low level internal echoes and septations along the inferior aspect of the left scrotum which is previously felt to represent a complex cystic collection, but may in fact be related to the complex left hydrocele. Relationship of these collections is difficult to assess. 2. A 1.2 cm cyst in the region of the right epididymal head. 3. Bilateral varicoceles. Assessment & Plan Assessment & Plan (1) Scrotal cyst: Code(s): L72.9 - Follicular cyst of the skin and subcutaneous tissue, unspecified Category: Medical (2) Epididymal cyst: Code(s): N50.3 - Cyst of epididymis Category: Medical Plan FU prn Orders: Orders AMB Urinalysis Automated 11/29/23 Z13.9 - Encounter for screening, unspecified Patient Instructions: The patient had an opportunity to ask questions regarding treatment plan. The patient expressed understanding and agreement with the above treatment plan. The patient is aware they should contact our office by phone for worsening of their current condition or the appearance of new symptoms. Compliance is encouraged with any medications and followup testing that is ordered. It is a privilege to be allowed the opportunity to participate in the urologic care of your patient. If you have any questions or concerns regarding treatment for the above conditions please do not hesitate to contact me. The office telephone contact is [phone]. This note is constructed in part using voice recognition software. While every effort has been made to ensure accuracy rides attendant errors may have been included. Yours sincerely, Eloisa Mccall MD Coding Level of Care Code Est Pt Level 3 (32725) Diagnoses Scrotal cyst L72.9 Epididymal cyst N50.3
== END 2023-11-29 16:22 | disposition home or self-care (01) ==
PROVIDERS: PCP Internal Medicine; Visit Provider Urology
DX: L72.9 Follicular cyst of the skin and subcutaneous tissue, unspecified (principal); N50.3 Cyst of epididymis
CPT/HCPCS: 99213

== ENCOUNTER → 2023-11-29 15:22 | Outpatient (BNVA) | payer OTHER, SELFPAY | PROVIDERS: PCP Internal Medicine; Visit Provider Urology | DX: N50.3 Cyst of epididymis (principal); L72.9 Follicular cyst of the skin and subcutaneous tissue, unspecified | CPT/HCPCS: 81003 ==

== ENCOUNTER 2024-04-23 15:48 | Outpatient (REF) | payer OTHER, SELFPAY ==
[2024-04-23 15:58] LABS: Appearance Urine Clear; Color Urine Yellow; Glucose Urine UA Negative (Negative); Leukocyte Esterase Urine Negative (Negative); Nitrite Urine Negative (Negative); PH 6.5 (5.0-9.0); Specific Gravity - Urine <= 1.005 (1.005-1.025); Urine Blood Negative (Negative); Urine Ketones Negative (Negative); Urine Protein Negative (Neg-Trace)
[2024-04-23 16:02] LABS: Bacteria Urine None Seen (None Seen); Hyaline Casts Urine 0-2 /LPF (0-2); RBC Urine 0-2 /HPF (0-2); Squamous Epithelial Cell Urine 0-2 /HPF (0-2); WBC Urine 0-5 /HPF (0-5)
== END 2024-04-23 15:49 | disposition home or self-care (01) ==
LOC: HO.LNP 15:48
PROVIDERS: Visit Provider Internal Medicine
DX: R35.0 Frequency of micturition (principal)
CPT/HCPCS: 81001; 87086

== ENCOUNTER 2024-09-16 10:30 | Outpatient (REF) | payer OTHER, SELFPAY ==
[2024-09-16 10:34] LABS: MANUAL DIFF FLAG NO
[2024-09-16 10:48] LABS: Basophils Absolute Auto 0.1 X10*3/uL (0.0-0.2); Basophils Percent Auto 1.3 % (0-2); Eosinophils Absolute Auto 0.7 X10*3/uL (0.0-0.4); Eosinophils Percent Auto 12.2 % (0-4); Hematocrit 42.7 % (42.0-52.0); Hemoglobin 14.4 g/dl (14.0-18.0); Imm Gran Abs Auto 0.01 X10*3/uL (0.00-0.03); Imm Gran Pct Auto 0.2 % (0.0-0.4); Lymphocytes Absolute Auto 2.1 X10*3/uL (1.2-4.9); Lymphocytes Percent Auto 38.5 % (20-40); Mean Corpuscular HGB Conc 33.7 g/dl (31.0-36.0); Mean Corpuscular Hemoglobin 30.5 pg (27.0-33.0); Mean Corpuscular Volume 90.5 fL (80.0-98.0); Mean Platelet Volume 10.7 fL (9.4-12.4); Monocytes Absolute Auto 0.4 X10*3/uL (0.1-1.2); Monocytes Percent Auto 7.5 % (2-11); Neutrophils Absolute Auto 2.2 x10*3/uL (2.0-8.3); Neutrophils Percent Auto 40.3 % (45-73); Platelet Count 224 X10*3/uL (160-400); Red Blood Count 4.72 X10*6/uL (4.60-5.80); Red Cell Distribution Width 12.3 % (11.0-16.0); White Blood Count 5.3 X10*3/uL (4.8-10.8)
[2024-09-16 10:58] LABS: Appearance Urine Clear; Color Urine Yellow; Glucose Urine UA Negative (Negative); Leukocyte Esterase Urine Negative (Negative); Nitrite Urine Negative (Negative); PH 5.5 (5.0-9.0); Urine Blood Negative (Negative); Urine Ketones Negative (Negative); Urine Protein Negative (Neg-Trace)
[2024-09-16 11:02] LABS: Bacteria Urine None Seen (None Seen); Hyaline Casts Urine 0-2 /LPF (0-2); RBC Urine 0-2 /HPF (0-2); Squamous Epithelial Cell Urine 0-2 /HPF (0-2); WBC Urine 0-5 /HPF (0-5)
[2024-09-16 11:18] LABS: PSA,Total (Free>4and<10) 1.22 ng/mL (0.00-4.00)
[2024-09-16 11:22] LABS: Alanine Aminotransferase 36 U/L (0-40); Albumin Level 4.2 g/dL (3.5-5.0); Alkaline Phosphatase 50 U/L (39-117); Anion Gap 11 (12-20); Aspartate Amino Transferase 26 U/L (5-37); Bilirubin Total 0.9 mg/dL (0.0-1.0); Blood Urea Nitrogen 18 mg/dL (9-16); Calcium 9.5 mg/dL (8.4-10.2); Carbon Dioxide 27 mmol/L (22-29); Chloride 107 mmol/L (96-108); Cholesterol 201 mg/dL (<200); Estimated Glomerular Filt Rate > 60; Glucose Fasting 100 mg/dL (60-99); HDL Cholesterol 47 mg/dL (>40); LDL Cholesterol Calculated 142 mg/dL (<100); Potassium 4.3 mmol/L (3.3-5.1); Sodium 141 mmol/L (135-145); Total Protein 7.2 g/dL (6.5-8.0); Triglycerides 64 mg/dL (<150)
--- OUTSIDE RECORDS SUMMARY | 2024-09-16 15:14 | XMS_ITS ---
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 Name Role Phone Thomas Wild Primary Care Provider REASON FOR VISIT CONSTIPATION Encounters Encounter Location Date Provider Diagnosis Thomas Wild MD [address] [place] [address] [phone] 07/23/2024 Thomas Wild Plan Of Treatment Next Appt Details Provider Name:Thomas Rueda ier, 09/23/2024 03:30:00 PM, [address], [address], [place], [place], [phone], Progress Notes * Cesilia MOORE LDOB: [birth year] (44 yo M)Acc No.[id number]:07/23/2024 Progress Notes Patient:?TERESA Cesilia Piedra Provider:?Thomas Wild MD :1980???Age:44 Y???Sex:Male Ignacio e:07/23/2024 Address:[address] [place] [address] , [place], [id number] Subjective: * Chief Complaints: * ???1. CONSTIPATION. * Medical History:? Objective: * Vitals:? Assessment: Plan: * Treatment: * * The named appointment provid er may or may not be the originator of this progress note, and it is not deemed complete until electronically signed by the appointment provider. Sign off status: Pending * Provider:?Thomas Wild MD Date:?09/23/2023 Generated for Nat elena/Tish/Ekaterina on:?09/16/2024 03:13 PM EST
--- OUTSIDE RECORDS SUMMARY | 2024-09-16 15:14 | XMS_ITS ---
Author Organization Thomas Wild MD Address [address] [place], [place] [id number] Care Team Providers Care Tooling Manager Name Role Phone Thomas Wild Primary Care Provider [phone] Results Component Value Reference Range Notes Complete Blood Count Auto Di ff (Not yet reviewed by provider) Interpretation: Performing Lab:[facility], [address] [place] [phone] Notes/Report: White Blood Count 5.3 4.8-10.8 X10*3/uL Red Blood Count 4.72 4.60-5.80 X10*6/uL Hemoglobin 14.4 14.0-18.0 g/dl Hematocrit 42.7 42.0-52.0 % Mean Corpuscular Volume 90.5 80.0-98.0 fL Mean Corpuscular Hemoglobin 30.5 27.0-33.0 pg Mean Corpuscular HGB Conc 33.7 31.0-36.0 g/dl Red Cell Distribution Width 12.3 11.0-16.0 % Platelet Count 224 160-400 X10*3/uL Mean Platelet Volume 10.7 9.4-12.4 fL Neutrophils Percent Auto 40.3 45-73 % Imm Gran Pct Auto 0.2 0.0-0.4 % Lymphocytes Percent Auto 38.5 20-40 % Monocytes Percent Auto 7.5 2-11 % Eosinophils Percent Auto 12.2 0-4 % Basophils Percent Auto 1.3 0-2 % NRBC Pct Auto 0.0 0.0-0.2 /100WBC Neutrophils Absolute Auto 2.2 2.0-8.3 x10*3/u L Imm Gran Abs Auto 0.01 0.00-0.03 X10*3/uL Lymphocytes Absolute Auto 2.1 1.2-4.9 X10*3/u L Monocytes Absolute Auto 0.4 0.1-1.2 X10*3/uL Eosinophils Absolute Auto 0.7 0.0-0.4 X10*3/u L Basophils Absolute Auto 0.1 0.0-0.2 X10*3/uL NRBC Abs Auto 0.000 0.0-0.012 X10*3/uL Comprehensive Williamson. Panel Fa st (Not yet reviewed by provider) Interpretation: Performing Lab:[facility], [address] [place] [phone] Notes/Report: Sodium 141 135-145 mmol/L Potassium 4.3 3.3-5.1 mmol/L Chloride 107 96-108 mmol/L Carbon Dioxide 27 22-29 mmol/L Anion Gap 11 12-20 Blood Urea Nitrogen 18 9-16 mg/dL Creatinine 0.93 0.5-1.4 mg/dL Estimated Glomerular Filt Rate > 60 Chronic Kidney Disease: Estimated GFR < 60 mL/min/1.73m2 Severe Kidney Disease: Estimated GFR < 15 mL/min/1.73m2 Glucose Fasting 100 60-99 mg/dL A fasting glucose from 100-125 mg/dl is considered impaired (pre-diabetes). Calcium 9.5 8.4-10.2 mg/dL Bilirubin Total 0.9 0.0-1.0 mg/dL Aspartate Amino Transferase 26 5-37 U/L Alanine Aminotransferase 36 0-40 U/L Total Protein 7.2 6.5-8.0 g/dL Albumin Level 4.2 3.5-5.0 g/dL Alkaline Phosphatase 50 39-117 U/L Lipid Panel (Not yet review ed by provider) Interpretation: Performing Lab:[facility], [address] [place] [phone] Notes/Report: Triglycerides 64 <150 mg/dL Desirable Triglyceride: less than 150 mg/dL Borderline High Triglyceride 150-199 mg/dL High Triglyceride: 200-499 mg/dL Very High Triglyceride: greater than or equal to 5OO mg/dL Cholesterol 201 <200 mg/dL Desirable Cholesterol: less than 200 mg/dL Borderline High Cholesterol: 200-239 mg/dL High Cholesterol: greater than 239 mg/dL LDL Cholesterol Calculated 142 <100 mg/dL Desirable LDL: less than 100 mg/dL Near Optimal/Above Optimal LDL: 110-129 mg/dL Borderline High LDL: 130-159 mg/dL High LDL: 160-189 mg/dL Very High LDL: greater than or equal to 190 mg/dL HDL Cholesterol 47 >40 mg/dL Desirable HDL: greater than 40 mg/dL Note: This HDL assay may give artificially low results in patients with liver disease. PSA,Total (Free>4and<10) (No t yet reviewed by provider) Interpretation: Performing Lab:[facility], [address] [place] [phone] Notes/Report: PSA,Total (Free>4and<10) 1.22 0.00-4.00 ng/mL A Free PSA was not performed: The percentage of Free PSA can be used to enhance the differentiation of prostate cancer from benign prostatic disease in subjects whose PSA levels are between 4.0 and 10.0 ng/mL. For subjects whose PSA levels are below 4.0 or above 10.0 ng/mL, the risk of prostate cancer is determined on the basis of the PSA alone. Therefore the % Free PSA is recommended only for those subjects whose PSA levels are between 4.0 and 10.0 ng/mL. PSA methodology: Momin Alinity i Chemiluminescent Microparticle Immunoassay (CMIA) UA ClnCatch+Micro w/rflx Cul t (Not yet reviewed by provider) Interpretation: Performing Lab:[facility], [address] [place] [phone] Notes/Report: Urine, Clean Catch Color Urine Yellow Appearance Urine Clear PH 5.5 5.0-9.0 Glucose Urine UA Negative Negative mg/dL Urine Blood Negative Negative Specific [place] - Urine 1.020 1.005-1.025 Urine Protein Negative Neg-Trace mg/dL Urine Ketones Negative Negative mg/dL Nitrite Urine Negative Negative Leukocyte Esterase Urine Negative Negative RBC Urine 0-2 0-2 /HPF WBC Urine 0-5 0-5 /HPF Squamous Epithelial Cell Urine 0-2 0-2 /HPF Bacteria Urine None Seen None Seen Hyaline Casts Urine 0-2 0-2 /LPF REASON FOR VISIT fasting yearly labs Encounters Encounter Location Date Provider Diagnosis Thomas Wild MD [address] [place], [place] [id number] 09/16/2024 Thomas Wild Blood tests for routine general physical examination Z00.00 ; Elevated LDL cholesterol level E78.00 and Lymphocytosis D72.820 Assessments Encounter Date Diagnosis (ICD Code) Assessment Notes Treatment Notes Treatment Clinical Notes Section Notes 09/16/2024 Blood tests for routine general physical examination (ICD-10 - Z00.00) 09/16/2024 Elevated LDL cholesterol level (ICD-10 - E78.00) 09/16/2024 Lymphocytosis (ICD-10 - D72.820) Plan Of Treatment Pending Test Test Name Order Date Complete Blood Count Auto Diff 5 Comprehensive Williamson. Panel Fast 5 Lipid Panel 09/16/2024 PSA,Total (Free>4and<10) 09/16/2024 UA ClnCatch+Micro w/rflx Cult 09/16/2024 Next Appt Details Provider Name:Thomas Rueda ier, 09/23/2024 03:30:00 PM, [address], [address], [place], [place], [id number], Progress Notes * Cesilia MOORE LDOB: 1 (44 yo M)Acc No.[id number]:09/16/2024 Progress Note Patient:?Cesilia MOORE Provider:?Thomas Wild MD :1980???Age:44 Y???Sex:Male Ignacio e:09/16/2024 Address:[address] [place], [place] [id number] Subjective: * Chief Complaints: * ???1. Fasting yearly labs. * Medical History:? Objective: * Vitals:? Assessment: * Assessment: 1.?Blood tests for routine g eneral physical examination - Z00.00 (Primary)???2.?Elevated LDL cholesterol level - E78.00???3.?Lymphocytosis - D72.820??? Plan: * Treatment: 2.?Elevated LDL cholesterol level?LAB: Complete Blood Count Auto Diff (Collection Date & Time - 09/16/2024 07:15 AM) ?LAB: Comprehensive Williamson. Panel Fast (Collection Date & Time - 09/16/2024 07:15 AM) ?LAB: Lipid Panel (Collection Date & Time - 09/16/2024 07:15 AM) ?LAB: PSA,Total (Free>4and<10) (Collection Date & Time - 09/16/2024 07:15 AM) ?LAB: UA ClnCatch+Micro w/rflx Cult (Collection Date & Time - 09/16/2024 07:15 AM) 3.?Lymphocytosis?LAB: Complete Blood Count Auto Diff (Collection Date & Time - 09/16/2024 07:15 AM) ?LAB: Comprehensive Williamson. Panel Fast (Collection Date & Time - 09/16/2024 07:15 AM) ?LAB: Lipid Panel (Collection Date & Time - 09/16/2024 07:15 AM) ?LAB: PSA,Total (Free>4and<10) (Collection Date & Time - 09/16/2024 07:15 AM) ?LAB: UA ClnCatch+Micro w/rflx Cult (Collection Date & Time - 09/16/2024 07:15 AM) * Procedure Codes:?32637 VENIP UNCT, ROUTINE* * * The named appointment provid er may or may not be the originator of this progress note, and it is not deemed complete until electronically signed by the appointment provider. Sign off status: Pending * Provider:?Thomas Wild MD Date:?0 09/16/2024 Generated for Nat elena/Tish/eTmeghasmitting on:?09/16/2024 03:13 PM EST
--- OUTSIDE RECORDS SUMMARY | 2024-09-16 15:14 | XMS_ITS ---
Author Organization Thomas Wild MD Address [address] [place], [place] [id number] Care Team Providers Care Emergency Physician Name Role Phone Thomas Wild Primary Care Provider Allergies Allergen (clinical drug ingredient) Drug/Non Drug Allergy documented on EMR Reaction Allergy Type Onset Date Status amoxicillin / clavulanate Augmentin diarrhea Drug Allergy Active REASON FOR VISIT Anxiety not sleeping x 3 weeks Medications Medication SIG (Take, Route, Frequency, Duration) Notes Start Date End Date Status Albuterol Sulfate (sensor) 108 (90 Base) MCG/ACT 1 puff as needed Inhalation every 4 hrs Active valACYclovir HCl 1 GM TAKE 1 TABLET BY M OUTH TWICE A DAY FOR 10 DAYS THEN TAKE 1 TABLET ONCE A DAY for 30 Not-Taking LORazepam 0.5 MG one tab Orally Once a day as needed for 30 days 05/06/2024 Active Immunizations Vaccine Route Administration Date Status Comme nts Fluarix Quadrivalent - 150 IM Intramuscular 05/06/2024 Adm inistered Problems Problem Type SNOMED Code ICD Code Onset Dates Problem Status W/U Status Risk Notes Problem 09972625 Situational anxiety (F41.8) Active confirmed Vital Signs Blood pressure systolic 122 mm Hg 05/06/20 24 Blood pressure diastolic 78 mm Hg 024 Height 73 in 05/06/2024 Weight 193 lbs 05/06/2024 BMI 25.46 kg/m2 05/06/2024 weight is down 4 pounds sinc e 9-3-24 Encounters Encounter Location Date Provider Diagnosis Thomas Wild MD [address] [place], [place] [phone] 05/06/2024 Thomas Wild Encounter for immunization Z23 and Situational anxiety F41.8 Assessments Encounter Date Diagnosis (ICD Code) Assessment Notes Treatment Notes Treatment Clinical Notes Section Notes 05/06/2024 Encounter for immunization (ICD-10 - Z23) flu vaccine administered 05/06/2024 Situational anxiety (ICD-10 - F41.8) patient verbalized understanding of medication and directions for use Plan Of Treatment Medication Medication Name Sig Start Date Stop Date Notes LORazepam 0.5 MG one tab Orally Once a day as needed for 30 days 05/06/2024 Treatment Notes Assessment Notes Encounter for immunization flu vaccine a dministered Situational anxiety patient verbalized u nderstanding of medication and directions for use Next Appt Details Provider Name:Thomas Rueda ier, 09/23/2024 03:30:00 PM, [address] [place] [address], [address], [place], [place], [phone], Progress Notes * Cesilia MOORE LDOB: 1 (44 yo M)Acc No.[id number]:05/06/2024 Progress Notes Patient:?Cesilia Moore L Provider:?Thomas Wild MD :1980???Age:44 Y???Sex:Male Ignacio e:05/06/2024 Address:[address] [place], [place] [phone] Subjective: * Chief Complaints: * ???Anxiety not sleeping x 3 weeks * HPI: ???Symptom(s):? patient is a 44 yo male here with complaint of anxiety,having difficulty sleeping for 3 weeks, worried about parents and resposibility at work. started the day he was here. did have a panic attack then.sleeping a ltttle better. took some of his mother's ativan and did well and did not bother him the next day. * ROS:?General/Constitutional:?Denies?Chills.?Denies?Fatigue.?Denies?Fever.?Denies?Headache.?ENT:?Patient denies?decreased sense of smell , any loss of taste , sore throat.?Denies?Sore throat.?Respiratory:?Denies?Cough.?Denies?Shortness of breath at rest.?Denies?Shortness of breath with exertion.?Gastrointestinal:?Denies?Diarrhea.?Denies?Nausea.?Musculoskeletal:?Patient denies?muscle aches.?Peripheral Vascular:?Patient denies?red and blue toes.?Psychiatric:?Admits?Anxiety.?Denies?Depressed mood.?Admits?Difficulty sleeping.?Denies?Loss of appetite.?Admits?Stressors.?Denies?Substance abuse.?Denies?Suicidal thoughts.? * Medical History:? * Surgical History:? * Hospitalization/Major Diagno stic Procedure:? * Medications:?TakingAlbuterol Sulfate (sensor) 108 (90 Base) MCG/ACT Aerosol Powder Breath Activated 1 puff as needed Inhalation every 4 hrsTaking Albuterol Sulfate (sensor) 108 (90 Base) MCG/ACT Aerosol Powder Breath Activated 1 puff as needed Inhalation every 4 hrsNot-Taking/PRNvalACYclovir HCl 1 GM Tablet TAKE 1 TABLET BY MOUTH TWICE A DAY FOR 10 DAYS THEN TAKE 1 TABLET ONCE A DAY Medication List reviewed and reconciled with the patientNot-Taking/PRN valACYclovir HCl 1 GM Tablet TAKE 1 TABLET BY MOUTH TWICE A DAY FOR 10 DAYS THEN TAKE 1 TABLET ONCE A DAY Medication List reviewed and reconciled with the patient * Allergies:?Augmentin: german orozco[Allergies Verified] Objective: * Vitals:?Ht: 73, Wt:193, BMI: 25.46, BP:122/78 weight is down 4 pounds since 04-23-24. * Examination: ???General Examination: ?GENERAL APPEARANCE:? alert, well hydrated, in no distress , male.?HEAD:? normocephalic.?SKIN:? good turgor.?HEART:? regular rate and rhythm.?LUNGS:? no wheezes, rales, rhonchi, good air movement, clear to auscultation bilaterally.? Assessment: * Assessment: 1.?Situational anxiety - F41 .8 (Primary)?2.?Encounter for immunization - Z23? Plan: * Treatment: 2.?Encounter for immunizatio n? Notes: flu vaccine administered?? * Immunizations:? Fluarix Quadrivalent - 150 : 0.5 mL (Dose No:1) (Route: Intramuscular) given by Marifer Flores on Left Deltoid * Procedure Codes:?24609 FLU V AC NO PRSV 4 CHARLIE 3 YRS+12324 IMMUNIZATION ADMIN * Preventive Medicine:? ??Immunizations:?Influenza?Have you had a flu shot since the most recent April 21??Yes.? * * Sign off status: Completed true * Provider:?Thomas Wild MD Date:?0 05/06/2024 Generated for Nat elena/Tish/eTransmitting on:?09/16/2024 03:13 PM EST History and Physical Notes * HPI (History of Present Illness) Category Sub-Category Detail Notes Category Not es Symptom(s) patient is a 44 yo male here with complaint of anxiety,having difficulty sleeping for 3 weeks, worried about parents and resposibility at work. started the day he was here. did have a panic attack then.sleeping a ltttle better. took some of his mother's ativan and did well and did not bother him the next day Examination Category Sub-Category Detail Notes Category Not es General Examination GENERAL APPEARANCE: alert, w ell hydrated, in no distress , male HEAD: normocephalic HEART: regular rate and rhy thm LUNGS: no wheezes, rales, r honchi, good air movement, clear to auscultation bilaterally SKIN: good turgor
== END 2024-09-16 10:31 | disposition home or self-care (01) ==
LOC: HO.LNP 10:30
PROVIDERS: Visit Provider Internal Medicine
DX: Z00.00 Encounter for general adult medical examination without abnormal findings (principal); E78.00 Pure hypercholesterolemia, unspecified; D72.820 Lymphocytosis (symptomatic); Z12.5 Encounter for screening for malignant neoplasm of prostate
CPT/HCPCS: 80053; 80061; 81001; 84153; 85025